=== PATIENT | male | born 1965 | race Hispanic/Latino ===

== ENCOUNTER 2021-09-12 22:03 | Emergency (ER) | payer SELFPAY ==
[2021-09-12 23:28] LABS: Absolute Lymphocytes (CBC) 1.4 K/uL (0.7-4.9); Basophils % 0.4 % (0-1.3); Hematocrit 39.1 % (39.6-49.0); Lymphocytes % 17.1 % (15.3-44.8); MPV 7.5 fL (7.6-11.3); RBC Red Blood Cell Count 4.75 M/uL (4.33-5.43)
[2021-09-12 23:43] LABS: ALT/SGPT 188 U/L (12-78); AST/SGOT 107 U/L (15-37); Albumin 3.4 g/dL (3.4-5.0); Alkaline Phosphatase 93 U/L (45-117); BUN Blood Urea Nitrogen 16 mg/dL (7-18); Bicarbonate 28 mmol/L (21-32); Bilirubin Direct < 0.1 mg/dL (0-0.2); Bilirubin Total 0.2 mg/dL (0.2-1.0); Glucose Level 165 mg/dL (74-106); Lipase 194 U/L (73-393); Potassium 3.9 mmol/L (3.5-5.1); Protein, Total 8.4 g/dL (6.4-8.2); Sodium Level 140 mmol/L (136-145)
--- NOTE | 2021-09-13 00:52 | EDPHYS ---
Physician Documentation [facility] Name: Homar Sol Age: 55 yrs Sex: Male : 1965 Arrival Date: 09/12/2021 Time: 22:07 Bed 25 Private MD: ED Physician Huseyin Iqbal HPI: 09/12 23:30 This 55 yrs old Male presents to ER via Ambulatory with complaints of Cough, kb Abdominal Pain. 23:30 The patient or guardian reports cough, that is intermittent, described as moderate. kb Onset: The symptoms/episode began/occurred 3 day(s) ago. Severity of symptoms: At their worst the symptoms were mild, moderate, in the emergency department the symptoms are unchanged. Modifying factors: The symptoms are alleviated by nothing, the symptoms are aggravated by nothing. Associated signs and symptoms: Pertinent positives: rhinorrhea, Pertinent negatives: chest pain, diarrhea, ear ache, fever, nausea, sore throat, vomiting. The patient has not experienced similar symptoms in the past. The patient has not recently seen a physician. Pt reports cough and congestion for 3 days. States his upper abd hurts with cough. Has gained about 40 pounds in the last few months and abd has been getting more distended. Historical: - Allergies: 22:36 No Known Allergies; sj1 - Home Meds: 22:36 None [Active]; sj1 - PMHx: 22:36 None; sj1 - PSHx: 22:36 None; sj1 - Immunization history:: Client reports receiving the 1st dose of the Covid vaccine. - Social history:: Smoking status: Patient reports the use of cigarette tobacco products, Patient denies any tobacco usage or history of. Patient uses alcohol, occasionally. Patient/guardian denies using street drugs. ROS: 23:30 Constitutional: Negative for fever, chills, and weight loss. kb 23:30 ENT: Positive for rhinorrhea, sinus congestion. 23:30 Respiratory: Positive for cough, Negative for dyspnea on exertion, hemoptysis, orthopnea, pleurisy, shortness of breath, sputum production, wheezing. 23:30 Abdomen/GI: Positive for abdominal pain, abdominal distension, Negative for nausea, vomiting, and diarrhea. 23:30 All other systems are negative. Exam: 23:29 Constitutional: This is a well developed, well nourished patient who is awake, alert, kb and in no acute distress. Head/Face: Normocephalic, atraumatic. ENT: Moist Mucous membranes Cardiovascular: Regular rate and rhythm with a normal S1 and S2. No gallops, murmurs, or rubs. No pulse deficits. Respiratory: Respirations even and unlabored. No increased work of breathing, no retractions or nasal flaring. Skin: Warm, dry with normal turgor. Normal color. MS/ Extremity: Pulses equal, no cyanosis. Neurovascular intact. Full, normal range of motion. Neuro: Awake and alert, GCS 15, oriented to person, place, time, and situation. Moves all extremities. Normal gait. Psych: Awake, alert, with orientation to person, place and time. Behavior, mood, and affect are within normal limits. 23:29 Abdomen/GI: Inspection: distension, that is moderate, in the abdomen diffusely, Bowel sounds: normal, Palpation: nontender, in all quadrants. Vital Signs: 22:34 BP 152 / 85; Pulse 87; Resp 18 S; Temp 99.1; Pulse Ox 99% on R/A; Weight 86.18 kg (R); sj1 Height 5 ft. 4 in. (162.56 cm) (R); Pain 0/10; 22:45 BP 147 / 85; Pulse 86; Resp 18; Pulse Ox 100% ; Pain 0/10; dc2 23:45 BP 148 / 94; Pulse 84; Resp 18; Pulse Ox 99% ; Pain 0/10; dc2 09/13 00:45 BP 131 / 87; Pulse 77; Resp 17; Temp 98.0; Pulse Ox 99% ; Pain 0/10; dc2 09/12 22:34 Body Mass Index 32.61 (86.18 kg, 162.56 cm) [facility] MDM: 09/12 22:33 Patient medically screened. kb 23:29 Data reviewed: vital signs, nurses notes. Data interpreted: Pulse oximetry: on room air kb is 99 %. Interpretation: normal. 09/13 00:51 Counseling: I had a detailed discussion with the patient and/or guardian regarding: the kb historical points, exam findings, and any diagnostic results supporting the discharge/admit diagnosis, lab results, radiology results, the need for outpatient follow up, a family practitioner, to return to the emergency department if symptoms worsen or persist or if there are any questions or concerns that arise at home. 09/12 22:41 Order name: Basic Metabolic Panel; Complete Time: 23:44 kb 09/12 22:41 Order name: CBC with Diff; Complete Time: 23:29 kb 09/12 22:41 Order name: Hepatic Function; Complete Time: 23:44 kb 09/12 22:41 Order name: Lipase; Complete Time: 23:44 kb 09/12 23:16 Order name: SARS-COV-2 RT PCR; Complete Time: 00:09 EDMS 09/12 22:41 Order name: IV Saline Lock; Complete Time: 23:11 kb 09/12 22:41 Order name: Labs collected and sent; Complete Time: 23:11 kb 09/12 22:41 Order name: Chest Single View XRAY kb 09/12 23:29 Order name: CT Abd/Pelvis - IV Contrast Only kb Administered Medications: 00:57 Drug: Tussionex Pennkinetic ER (chlorpheniramine-hydrocodone) Suspension 5 ml Route: PO;dc2 01:03 Follow up: Response: Medication administered at discharge. dc2 Disposition: 03:45 Co-signature as Attending Physician, Huseyin Iqbal MD I agree with the assessment and rn plan of care. Attestation: The patient's history, exam findings, diagnostics, and a summary of any interventions or procedures was reviewed in detail with Ivanna RENO. Disposition Summary: 09/13/21 00:52 Discharge Ordered Location: Home kb Condition: Stable kb Diagnosis - Cough kb Followup: kb - With: Emergency Department - When: As needed - Reason: Worsening of condition Followup: kb - With: Private Physician - When: 2 - 3 days - Reason: Recheck today's complaints, Continuance of care, Re-evaluation by your physician Discharge Instructions: - Discharge Summary Sheet kb - Cough, Adult, [id number] kb - Viral Respiratory Infection, [id number] kb Forms: - Medication Reconciliation Form kb - Thank You Letter kb - Antibiotic Education kb - Prescription Opioid Use kb Prescriptions: - Tessalon Perles 100 mg Oral Capsule - take 1 capsule by ORAL route every 8 hours As needed; 15 capsule; Refills: 0, kb Product Selection Permitted Signatures: Dispatcher [employer] [facility] Ivanna Honeycutt FNP-C FNP-Ckb Nieto, Roman, MD MD rn George, Sahara RN RN dc2 Baylee Smiley RN RN sj1 Corrections: (The following items were deleted from the chart) 09/12 23:16 22:42 CORONAVIRUS+[email or web address] ordered. [facility] 09/13 00:51 00:51 Counseling: I had a detailed discussion with the patient and/or guardian pearl regarding: the historical points, exam findings, and any diagnostic results supporting the discharge/admit diagnosis, the need for outpatient follow up, a family practitioner, to return to the emergency department if symptoms worsen or persist or if there are any questions or concerns that arise at home, kb
--- NOTE | 2021-09-13 00:52 | ER ---
Nurse's Notes [facility] [place], [place] Name: Homar Sol Age: 55 yrs Sex: Male : 1965 Arrival Date: 09/12/2021 Time: 22:07 Bed 25 Private MD: Diagnosis: Cough Presentation: 09/12 22:34 Chief complaint: Patient states: REPORTS UPPER ABD PAIN X 3 DAYS, WORSE WITH COUGH, sj1 HEADACHE AND RUNNY NOSE. ABD DISTENDED, 20LB WT GAIN IN 1.5 MONTHS. Coronavirus screen: Vaccine status: Patient reports receiving the 1st dose of the Covid vaccine. Ebola Screen: No symptoms or risks identified at this time. Initial Sepsis Screen: Does the patient meet any 2 criteria? No. Patient's initial sepsis screen is negative. Does the patient have a suspected source of infection? No. Patient's initial sepsis screen is negative. Risk Assessment: Do you want to hurt yourself or someone else? Patient reports no desire to harm self or others. Onset of symptoms was September 09, 2021. 22:34 Method Of Arrival: Ambulatory [facility] 22:34 Acuity: KALPESH 3 sj1 Triage Assessment: 22:36 General: Appears in no apparent distress. Behavior is calm, cooperative, appropriate sj1 for age. Pain: Complains of pain in ABD PAIN WORSE WITH COUGH Pain radiates to "ALL ACROSS UPPER ABDOMEN". EENT: No signs and/or symptoms were reported regarding the EENT system. Neuro: Level of Consciousness is awake, alert, Oriented to person, place, time, situation. Cardiovascular: No deficits noted. Respiratory: No deficits noted. GI: Abdomen is distended. : No signs and/or symptoms were reported regarding the genitourinary system. Derm: No signs and/or symptoms reported regarding the dermatologic system. Musculoskeletal: No signs and/or symptoms reported regarding the musculoskeletal system. Historical: - Allergies: 22:36 No Known Allergies; sj1 - Home Meds: 22:36 None [Active]; sj1 - PMHx: 22:36 None; sj1 - PSHx: 22:36 None; sj1 - Immunization history:: Client reports receiving the 1st dose of the Covid vaccine. - Social history:: Smoking status: Patient reports the use of cigarette tobacco products, Patient denies any tobacco usage or history of. Patient uses alcohol, occasionally. Patient/guardian denies using street drugs. Screenin:39 Abuse screen: Denies threats or abuse. Denies injuries from another. Nutritional sj1 screening: No deficits noted. Tuberculosis screening: No symptoms or risk factors identified. Fall Risk None identified. Assessment: 22:45 General: Appears in no apparent distress. Behavior is calm, cooperative. dc2 22:45 Pain: Denies pain. Neuro: No deficits noted. Level of Consciousness is obeys commands, dc2 Oriented to person, place, time, situation, Estimator are equal bilaterally. Cardiovascular: No deficits noted. Denies chest pain, vomiting, Pt reports pain to epigastric area / across top of abdomen when he coughs. states no pain when just sitting still . Respiratory: No deficits noted. Reports cough that is non-productive, Airway is patent. GI: Abdomen is round Pt abdomen obese and round. Feels hard, pt states its always like this " all i do is stay at home and eat and Iris been eating a lot , denies nausea or pain at this time Reports last BM was this evening before coming to hospital and reports was normal. : No signs and/or symptoms were reported regarding the genitourinary system. Derm: No deficits noted. No signs and/or symptoms reported regarding the dermatologic system. Musculoskeletal: No deficits noted. No signs and/or symptoms reported regarding the musculoskeletal system. 22:45 GI: Bowel sounds present X 4 quads. Abd is non tender X 4 quads Reports pain in upper dc2 abdomen when coughs. No pain without coughing. 22:45 : No deficits noted. No signs and/or symptoms were reported regarding the dc2 genitourinary system. Urine is clear. Derm: No deficits noted. No signs and/or symptoms reported regarding the dermatologic system. Musculoskeletal: No deficits noted. No signs and/or symptoms reported regarding the musculoskeletal system. Vital Signs: 22:34 BP 152 / 85; Pulse 87; Resp 18 S; Temp 99.1; Pulse Ox 99% on R/A; Weight 86.18 kg (R); sj1 Height 5 ft. 4 in. (162.56 cm) (R); Pain 0/10; 22:45 BP 147 / 85; Pulse 86; Resp 18; Pulse Ox 100% ; Pain 0/10; dc2 23:45 BP 148 / 94; Pulse 84; Resp 18; Pulse Ox 99% ; Pain 0/10; dc2 09/13 00:45 BP 131 / 87; Pulse 77; Resp 17; Temp 98.0; Pulse Ox 99% ; Pain 0/10; dc2 09/12 22:34 Body Mass Index 32.61 (86.18 kg, 162.56 cm) 1 ED Course: 09/12 22:07 Patient arrived in ED. bp1 22:23 Ivanna Hnoeycutt FNP-C [facility] kb 22:23 Huseyin Iqbal MD is Attending Physician. kb 22:36 Triage completed. sj1 22:36 Arm band placed on Patient placed in an exam room. sj1 22:39 Patient has correct armband on for positive identification. sj1 22:45 No provider procedures requiring assistance completed. dc2 23:10 Sahara Vazquez, RN is Primary Nurse. dc2 23:11 Basic Metabolic Panel Sent. dc2 23:11 CBC with Diff Sent. dc2 23:11 Hepatic Function Sent. dc2 23:11 Lipase Sent. dc2 23:12 Inserted saline lock: 18 gauge in right in left antecubital area, using aseptic cs9 technique. 23:13 Initial lab(s) drawn, by me, sent to lab. cs9 23:13 COVID swab sent to lab. cs9 23:[address] via wheelchair. dc2 09/13 00:16 X-ray(s) taken. dc2 00:20 CT Abd/Pelvis - IV Contrast Only In Process Unspecified. EDMS 00:45 Chest Single View XRAY In Process Unspecified. EDMS 01:03 IV discontinued, intact, bleeding controlled, No redness/swelling at site. Pressure dc2 dressing applied. Administered Medications: 00:57 Drug: Tussionex Pennkinetic ER (chlorpheniramine-hydrocodone) Suspension 5 ml Route: PO;dc2 01:03 Follow up: Response: Medication administered at discharge. dc2 Outcome: 00:52 Discharge ordered by . kb 00:57 Discharged to home ambulatory. dc2 00:57 Condition: stable 00:57 Discharge instructions given to patient, Instructed on discharge instructions, follow up and referral plans. Demonstrated understanding of instructions, follow-up care, medications, Prescriptions given X 1. 01:04 Patient left the ED. dc2 Signatures: Dispatcher [employer] EDMS Ivanna Honeycutt, ENERGY MANAGER-C ENERGY MANAGER-Ckb Shu [facility] Sahara Vazquez RN RN dc2 Baylee Smiley RN RN sj1 Lisa Hale 9 Corrections: (The following items were deleted from the chart) 09/12 23:16 23:11 CORONAVIRUS+ drawn and sent. meka SAV
[2021-09-13] MEDS ORDERED: HYDROCODONE/CHLORPHEN 5 ML/OSYR ONE (01:22)
[2021-09-13 01:53] VITALS: O2SAT 99
[2021-09-13 01:54] VITALS: BP 131/87; TEMP 98
--- NOTE | 2021-09-13 08:30 | RAD REPORT ---
EXAM DESCRIPTION: RAD - Chest Single View - 09/13/2021 12:44 am CLINICAL HISTORY: COUGH COMPARISON: None TECHNIQUE: AP portable chest image was obtained 09/13/2021 12:44 am . FINDINGS: No peripheral mass or consolidation. Interstitial pattern is mildly prominent but is proba aminah baseline for the patient. A minimal interstitial edema or infiltrate cannot be entirely excluded. Trachea is midline. Heart size within range of normal for portable technique. No vascular engorgement seen. No measurable pleural effusion and no pneumothorax. No acute bony abnormality seen. No acute aortic findings suspected. IMPRESSION: No acute cardiopulmonary process. Interstitial markings are mildly prominent but probably baseline for the patient. A minimal interstit ial edema or infiltrate process is not entirely excluded.
--- NOTE | 2021-09-13 10:11 | RAD REPORT ---
EXAM DESCRIPTION: CT - Abdomen Pelvis W Contrast - 09/13/2021 6:59 am CLINICAL HISTORY: ABD PAIN COMPARISON: None Available. TECHNIQUE: CT of the abdomen and pelvis performed following IV administration of iodinated contras t. This exam was performed according to our departmental dose-optimization program, which includes au tomated exposure control, adjustment of the mA and/or kV according to patient size and/or use of iter ative reconstruction technique. FINDINGS: Lung Bases: The visualized lung bases are clear. Bones: Minimal endplate spondylosis. Abdomen: Liver: The liver has normal size and decreased density with more confluent hepatic steatosis in the r ight hepatic lobe.. No intrahepatic biliary dilatation. Gallbladder: No calcified gallstones. Spleen, Pancreas, and Adrenal Glands: The spleen, pancreas, and adrenal glands are unremarkable. Kidneys: No hydronephrosis or obstructing calculus. Vasculature: Aortoiliac atherosclerosis. IVC is unremarkable. The portal vein is patent. The proxim al visceral and renal arteries are patent. Stomach: The stomach and duodenum have normal course. Other: No free intraperitoneal air. No free fluid or lymphadenopathy. Pelvis: Bladder: Urinary bladder is unremarkable. Bowel: No dilated loops of large or small bowel. Scattered diverticula of the colon. Appendix: Normal appendix. Pelvis: Prostate is not enlarged. IMPRESSION: 1. No acute inflammatory or obstructive process identified. 2. Hepatic steatosis. 3. Diverticulosis without evidence of acute diverticulitis. Electronically signed by: Fidel Lewis 09/13/2021 12:37 AM CDT Due to temporary technical issues with the PACS/Fluency reporting system, reports are being signed by the in house radiologists without review as a courtesy to insure prompt reporting. The interpreting radiologist is fully responsible for the content of the report.
== END 2021-09-13 01:04 | disposition home or self-care (01) ==
LOC: ER 22:03
DX: R05.9 Cough, unspecified (principal); R10.9 Unspecified abdominal pain; F17.210 Nicotine dependence, cigarettes, uncomplicated
CPT/HCPCS: 36415; 71045; 74177; 80048; 80076; 83690; 85025; 99284; Q9967; U0003